=== PATIENT | female | born 1935 ===

== ENCOUNTER 2018-06-20 22:57 | Inpatient (IN) ==
[2018-06-20] MEDS ORDERED: DUONEB (A & A) INH ONE (23:34)
[2018-06-20] MEDS ORDERED: SOLU-MEDROL IV ONE (23:36)
[2018-06-20 23:50] LABS: BE 2.4 mmoll (-3.0-3.0); BLOOD TYPE ARTERIAL; HCO3-(ACT) 26.4 mmoll (20.0-26.0); METHB 1.3 % (0.0-1.5); O2(CT) 19.4 mL/dL (15.0-23.0); PO2(98.6) 62 mmHg (60-100); SAMPLE BLOOD; SAO2 89.6 % (95.0-100.0); THB 16.1 g/dL (11.5-17.4)
[2018-06-20 23:59] LABS: BASO# 0.05 X1000 (0.0-0.2); BASO% 0.3 % (0.0-0.8); EOS# 0.08 X1000 (0.0-0.7); EOS% 0.5 % (0.0-10.0); HEMATOCRIT 47.6 % (37.0-47.0); HEMOGLOBIN 15.5 g/dL (12.0-16.0); IMM GRAN# 0.04 X1000 (0.0-0.04); IMM GRAN% 0.2 % (0.0-0.5); LYMPH# 1.52 X1000 (1.2-3.4); LYMPH% 9.1 % (20.5-51.1); MCH 29.3 PG (27-31); MCHC 32.6 g/dL (33-37); MONO# 1.99 X1000 (0.11-0.59); MPV 9.4 FL (7.4-10.4); NEUT# 12.97 X1000 (1.4-6.5); NEUT% 77.9 % (42.2-75.2); PLT 202 X1000 (130-400); RBC 5.29 XMIL (4.2-5.4); RDW 15.5 % (11.5-14.5); WBC 16.65 X1000 (4.8-10.8)
[2018-06-21 00:07] LABS: PCO2(98.6) 96 mmHg (35-45); pH(98.6) 7.17 (7.35-7.45)
[2018-06-21 00:08] LABS: ALLEN TEST YES; MODALITY CANNULA
[2018-06-21 00:09] LABS: INFLUENZA A POSITIVE (NEGATIVE); INFLUENZA B NEGATIVE (NEGATIVE)
[2018-06-21 00:19] LABS: AGAP 14; ALKALINE PHOSPHATASE 83 U/L (32-104); BUN 14 mg/dL (8-22); CALCIUM 8.4 mg/dL (8.8-10.2); CHLORIDE 90 mmol/L (98-107); COSMO 264; CREATININE 0.6 mg/dL (0.5-0.9); ESTIMATED GFR > 60; GLUCOSE 189 mg/dL (70-104); GOT 31 U/L (10-30); GPT 25 U/L (10-36); POTASSIUM 4.1 mmol/L (3.5-5.1); SODIUM 129 mmol/L (136-145); TCO2 25 mmol/L (25-35); TOTAL PROTEIN 6.1 g/dL (6.3-8.3)
[2018-06-21] MEDS ORDERED: TAMIFLU PO ONE (00:29)
[2018-06-21 00:34] LABS: BLOOD TYPE ARTERIAL; SAMPLE BLOOD
[2018-06-21 00:45] LABS: BILIRUBIN URINE NEGATIVE (NEGATIVE); BLOOD URINE 3+ (NEGATIVE); CLARITY CLEAR (CLEAR); COLOR YELLOW; GLUCOSE URINE NEGATIVE (NEGATIVE); KETONE URINE NEGATIVE (NEGATIVE); LEUKOCYTES URINE TRACE (NEGATIVE); NITRITE URINE NEGATIVE (NEGATIVE); PH URINE 6.5; URINE BACTERIA 2+ /HFP; URINE EPITHELIAL CELLS <10 /HPF (<10); URINE SOURCE CATH; URINE WBC <10 /HPF (<10); UROBILINOGEN URINE 4 mg/dL
[2018-06-21 01:07] LABS: pH(98.6) 7.26 (7.35-7.45)
[2018-06-21 01:08] LABS: BE 1.7 mmoll (-3.0-3.0); HCO3-(ACT) 26.2 mmoll (20.0-26.0); METHB 1.5 % (0.0-1.5); O2HB 95.1 % (95.0-99.0); PCO2(98.6) 69 mmHg (35-45); PO2(98.6) 117 mmHg (60-100); SAO2 99.2 % (95.0-100.0); THB 15.1 g/dL (11.5-17.4)
[2018-06-21 01:09] LABS: ALLEN TEST YES; MODALITY BI PAP; O2(CT) 33.1 mL/dL (15.0-23.0)
[2018-06-21] MEDS ORDERED: LEVAQUIN 750 MG/D5W 750 MG/150 ML IVPB IV ONE (01:29)
[2018-06-21] MEDS ORDERED: LASIX IV ONE (01:34)
--- NOTE | 2018-06-21 05:13 | Diag Imaging Result Doc PS360 ---
EXAM: CHEST-1 VIEW HISTORY: low o2 sat TECHNIQUE: Portable chest single view COMPARISON: 03/20/2014 FINDINGS: The lungs are well expanded. The heart is mildly enlarged. There is a left-sided pacemaker. The pulmonary vessels aren't distended. Questionable trace pleural fluid. No consolidation. IMPRESSION: Cardiomegaly with pulmonary edema. Electronically signed by Hua Mckeon 06/21/2018 5:10 AM
--- NOTE | 2018-06-21 05:22 | EKG Report ---
Test Performed on : 06/20/2018 11:53:08 PM Test Reason : SOB Blood Pressure : / mmHG Vent. Rate : 062 BPM Atrial Rate : 113 BPM P-R Int : 162 ms QRS Dur : 200 ms QT Int : 510 ms P-R-T Axes : 000 -81 098 degrees QTc Int : 517 ms AV dual-paced rhythm Abnormal ECG When compared with ECG of 20-MAR-2014 05:44, Electronic ventricular pacemaker has replaced Sinus rhythm. Unconfirmed Result
[2018-06-21] MEDS ORDERED: TAMIFLU PO SCH (09:00)
[2018-06-21] MEDS ORDERED: METFORMIN HCL 500 MG PO PRN (12:58)
[2018-06-21] MEDS ORDERED: ZOFRAN IV PRN (12:58)
[2018-06-21] MEDS ORDERED: TYLENOL PO PRN (12:58)
[2018-06-21] MEDS ORDERED: DUONEB (A & A) INH PRN (12:59)
[2018-06-21] MEDS ORDERED: GLUCOPHAGE XR PO PRN (13:51)
[2018-06-21] MEDS: IMDUR PO SCH (14:51)
[2018-06-21] MEDS: TAMIFLU PO SCH ×2 (14:52→20:23)
[2018-06-21] MEDS: NORVASC PO SCH (14:52)
[2018-06-21] MEDS: PRINIVIL PO SCH (14:52)
[2018-06-21] MEDS: ASPIRIN EC PO SCH (14:52)
[2018-06-21] MEDS: HYDROCHLOROTHIAZIDE PO SCH (14:52)
[2018-06-21] MEDS: NS 1,000 ML IV SCH (14:53)
[2018-06-21] MEDS: ROCEPHIN 1 GM in NS 50 ML IV SCH (14:53)
[2018-06-21] MEDS: DUONEB (A & A) INH SCH ×3 (15:30→19:52)
[2018-06-21] MEDS: XARELTO PO SCH (17:01)
[2018-06-21] MEDS: SOLU-MEDROL IV SCH (17:01)
[2018-06-21] MEDS: HUMALOG (PARKWAY) SUBQ SCH ×2 (17:02→22:04)
--- NOTE | 2018-06-21 18:18 | HISTORY AND PHYSICAL ---
CHIEF COMPLAINT: Shortness of breath. HISTORY OF PRESENT ILLNESS: This is an 82-year-old woman with a history of diabetes mellitus, hypertension, bradyarrhythmias status post permanent pacemaker, as well as a deep vein thrombosis. She presents to the emergency room with increasing shortness of breath x1 week as well as generalized body aches. She reports being severely short of breath and falling just prior to calling EMS. She denied any injury. On EMS arrival, the patient had O2 saturation of 74% on 2 L nasal cannula. En route EMS administered for breathing treatments and she had an O2 saturation of 82% on 2 L on arrival to the ER. A chest x-ray revealed cardiomegaly with pulmonary edema. She was found to be influenza A positive as well as hyponatremic. She was given Tamiflu, Lasix, steroids, antibiotics, and admitted for further evaluation and treatment. PAST MEDICAL HISTORY: 1. Diabetes mellitus. 2. Hyperlipidemia 3. Hypertension. 4. Degenerative joint disease. 5. Insomnia. 6. Bradyarrhythmia status post permanent pacemaker. 7. History of DVT on Xarelto. 8. Home O2 use. 9. History of polio. PAST SURGICAL HISTORY: Pacemaker placement. SOCIAL HISTORY: She smokes about a half a pack a day. She denies alcohol or illicit drug use. ALLERGIES: Penicillin which causes hives. HOME MEDICATIONS: A list will be obtained by the nursing staff and once verified, will review and restart as appropriate. REVIEW OF SYSTEMS: Discussed with the patient with pertinent positives stated in the HPI. She denied any syncope or dizziness, any chest pain or palpitations, a productive cough, any recent weight loss or weight gain, nausea, vomiting, diarrhea, constipation, black or bloody vomitus or stools, any hematuria, dysuria, frequency, urgency. PHYSICAL EXAMINATION: GENERAL: This is an 82-year-old female who is sitting up in the stretcher in the ER on BiPAP. VITAL SIGNS: Blood pressure is 119/64 with respirations 20 to 22. Temperature is 97.8 degrees with saturations of 97% on BiPAP. HEENT: Eyes-pupils are equal, round, react to light. EOMs are intact. Sclerae are anicteric. Mucous membranes are moist with neck supple. CARDIOVASCULAR: Regular rate and rhythm. S1 and S2 appreciated. PULMONARY: Breath sounds with wheezes scattered throughout. Chest rises and falls symmetrically with respiration. GASTROINTESTINAL: Abdomen is soft, nontender, nondistended with bowel sounds in all 4 quadrants. GENITOURINARY: She has Blackmon catheter with clear yellow urine draining. NEUROLOGIC: She is alert and oriented. SKIN: Warm and dry. LABORATORY DATA: WBC is 16.6, hemoglobin 15.5, hematocrit 47.6, and platelets of 202,000. Sodium is 129, potassium 4.1, BUN 14, creatinine 0.6 with a glucose of 189. Her proBNP is 1148. Chest x- ray revealed cardiomegaly with pulmonary edema. ASSESSMENT AND PLAN: 1. Acute hypoxic respiratory failure. continue with supplemental oxygen. continue BiPAP. DuoNeb q.2 hours p.r.n. We will give steroids to taper. Duo nebs q.4 h with q.2 h prn Monitor a strict I O with daily weights. 2. Diabetes mellitus. She will be placed on pattern blood glucose with sliding scale insulin. 3. Hyponatremia. We will monitor her labs and review medications. 4. Influenza A positive. Continue Tamiflu 5. History of hypertension. 6. History of bradycardia status post permanent pacemaker placement. 7. History of deep venous thrombosis on Xarelto. 8. History of polio. The patient will be admitted to the medical-surgical floor and placed on telemetry. Antibiotic coverage of Rocephin. Repeat a CBC, CMP and magnesium in the morning. For DVT prophylaxis., we will continue her Xarelto GI prophylaxis we will use Prilosec. Repeat a two-view chest in the morning. Further treatments pending hospital course. Dictated by YULIA Pelayo for Luis Fernando Xie MD This chart was documented by, YULIA Pelayo and accurately reflects the services performed, treatment plan and medical decisions as attested by the providers signature Luis Fernando Xie MD. cc: YULIA Pelayo MD [facility]
[2018-06-21] MEDS: DESYREL PO SCH (20:22)
[2018-06-21] MEDS: COREG PO SCH (20:23)
[2018-06-21] MEDS ORDERED: CALMOSEPTINE OINTMENT TOP PRN (20:54)
[2018-06-21] MEDS ORDERED: DESITIN OINTMENT TOP PRN (20:54)
[2018-06-22] MEDS: DUONEB (A & A) INH SCH ×7 (00:05→22:45)
[2018-06-22] MEDS: SOLU-MEDROL IV SCH ×4 (00:30→23:15)
--- NOTE | 2018-06-22 01:54 | HISTORY AND PHYSICAL ---
ADDENDUM: Patient seen and examined by myself. Full note dictated discussed with nurse practitioner. Patient notes that she has been sick for a couple of days. She presented with increased shortness of breath. She is on oxygen at home, was placed on BiPAP in the ER. Subsequently diagnosed with flu A positive. We will admit to the hospital, place on Tamiflu, treat symptomatically and follow. cc: Luis Fernando Xie MD
[2018-06-22] MEDS: NS 1,000 ML IV SCH (05:41)
[2018-06-22] MEDS: PRILOSEC PO SCH (05:42)
[2018-06-22] MEDS: HUMALOG (PARKWAY) SUBQ SCH ×4 (06:27→21:32)
[2018-06-22] MEDS ORDERED: NS 1,000 ML IV SCH (06:30)
[2018-06-22 06:38] LABS: HEMATOCRIT 44.5 % (37.0-47.0); HEMOGLOBIN 14.9 g/dL (12.0-16.0); MCH 29.5 PG (27-31); MCHC 33.5 g/dL (33-37); MCV 88.1 FL (81-99); MPV 9.5 FL (7.4-10.4); RBC 5.05 XMIL (4.2-5.4); WBC 6.79 X1000 (4.8-10.8)
--- NOTE | 2018-06-22 06:48 | Diag Imaging Result Doc PS360 ---
EXAM: CHEST-PORTABLE - 06/22/2018 HISTORY: hypoxia TECHNIQUE: Portable chest COMPARISON: 06/20/2018 FINDINGS: There is cardiomegaly. There is transvenous cardiac pacemaker again seen. There is been some decrease in vascular/interstitial marking prominence. There is no dense consolidation, pleural effusion, or pneumothorax identified. There is a left midlung calcified granuloma from old granulomatous disease. IMPRESSION: Cardiomegaly. Decrease in vascular congestion/interstitial edema compared to prior. Electronically signed by Dragan Meza 06/22/2018 6:46 AM
[2018-06-22 07:08] LABS: AGAP 9; ALBUMIN 2.6 g/dL (3.5-5.0); ALKALINE PHOSPHATASE 67 U/L (32-104); BUN 15 mg/dL (8-22); CALCIUM 8.7 mg/dL (8.8-10.2); CHLORIDE 96 mmol/L (98-107); COSMO 269; CREATININE 0.5 mg/dL (0.5-0.9); ESTIMATED GFR > 60; GLUCOSE 138 mg/dL (70-104); GOT 16 U/L (10-30); GPT 17 U/L (10-36); MAGNESIUM 2.1 mg/dL (1.5-2.7); POTASSIUM 3.9 mmol/L (3.5-5.1); SODIUM 133 mmol/L (136-145); TCO2 28 mmol/L (25-35); TOTAL PROTEIN 5.8 g/dL (6.3-8.3)
[2018-06-22] MEDS: ASPIRIN EC PO SCH (08:27)
[2018-06-22] MEDS: COREG PO SCH ×2 (08:27→20:25)
[2018-06-22] MEDS: PRINIVIL PO SCH (08:28)
[2018-06-22] MEDS: IMDUR PO SCH (08:28)
[2018-06-22] MEDS: HYDROCHLOROTHIAZIDE PO SCH (08:28)
[2018-06-22] MEDS: NORVASC PO SCH (08:28)
[2018-06-22] MEDS: TAMIFLU PO SCH ×2 (08:28→20:25)
[2018-06-22] MEDS ORDERED: CRESTOR PO SCH (09:00)
[2018-06-22] MEDS: ROCEPHIN 1 GM in NS 50 ML IV SCH (13:38)
[2018-06-22] MEDS: XARELTO PO SCH (16:43)
[2018-06-22] MEDS: DESYREL PO SCH (20:25)
--- NOTE | 2018-06-23 00:52 | PROGRESS NOTE ---
DATE: 06/22/2018 SUBJECTIVE: Patient notes that she feels better. Denies any fevers or chills currently. PHYSICAL EXAMINATION: Vital Signs: Temperature 98 degrees, pulse 64, respiratory 20, BP 111/88. General: Patient is awake, alert. She is feeling better. HEENT: Normocephalic. Neck: Supple. Cardiovascular: Regular rate. Chest: Clear, nonlabored. Abdomen: Soft. Extremities: Moves all extremities. ASSESSMENT: 1. Influenza A positive. 2. Adult failure to thrive. The patient is unable to get out of bed without assistance. 3. Hypoxemia. PLAN: We will continue patient in the hospital. Continue physical therapy. She will need rehab on discharge. cc: Luis Fernando Xie MD
[2018-06-23] MEDS: DUONEB (A & A) INH SCH ×4 (03:07→15:16)
[2018-06-23] MEDS: PRILOSEC PO SCH ×2 (06:13→09:04)
[2018-06-23] MEDS: HUMALOG (PARKWAY) SUBQ SCH ×2 (06:13→11:19)
[2018-06-23] MEDS: TAMIFLU PO SCH (08:56)
[2018-06-23] MEDS: COREG PO SCH (08:57)
[2018-06-23] MEDS: ASPIRIN EC PO SCH (08:57)
[2018-06-23] MEDS: IMDUR PO SCH (08:57)
[2018-06-23] MEDS: NORVASC PO SCH (09:00)
[2018-06-23] MEDS ORDERED: SOLU-MEDROL IV SCH (09:00)
[2018-06-23] MEDS: PRINIVIL PO SCH (09:00)
[2018-06-23] MEDS: HYDROCHLOROTHIAZIDE PO SCH (09:00)
[2018-06-23] MEDS ORDERED: NICODERM PATCH TD SCH (12:30)
[2018-06-23 13:24] VITALS: BP 117/58
[2018-06-23] MEDS: ROCEPHIN 1 GM in NS 50 ML IV SCH (14:24)
[2018-06-23] MEDS ORDERED: CRESTOR PO SCH (21:00)
--- NOTE | 2018-06-25 01:32 | DISCHARGE SUMMARY ---
ADMISSION DATE: 06/21/2018 DISCHARGE DATE: 06/23/2018 DISCHARGE DIAGNOSIS: 1. Influenza A positive. 2. Acute hypoxic respiratory failure, resolved. 3. Diabetes. 4. Hyponatremia, resolved. 5. Hyponatremia, resolved. 6. Hypertension. 7. History of bradycardia. CONSULTATIONS: None. PROCEDURES: None. BRIEF HOSPITAL COURSE: Patient is an 82-year-old female who presented to the hospital. Subsequently diagnosed with influenza A positive. Thankfully, she had an uneventful hospital course. She was placed on Tamiflu and oxygen. She continued to improve. On discharge, she is feeling better. She is able to ambulate with a walker which is her usual at home. DISPOSITION: Patient will continue Tamiflu for the next 3 days at home. We will continue physical therapy at home. We will continue current medications. cc: Luis Fernando Xie MD
== END 2018-06-23 16:05 | disposition home health service (06) | DRG 193 ==
LOC: P.ED 22:57 → P.MEDSURG 06-21 07:54 → SUATTDRO 06-21 07:54
PROVIDERS: ADMIT Family Medicine; ATTEND Family Medicine
CPT/HCPCS: 51702; 71010; 71045; 80053; 81001; 82550; 82805; 82948; 83605; 83735; 83880; 84484; 85025; 85027; 87040; 87088; 87275; 87276; 87804; 93005; 94640; 94761; 96374; 96375; 97163; 99285; A9270; J0696; J1815; J1940; J1956; J2920; J2930; J7030; XXXXX

== ENCOUNTER 2019-08-21 11:43 | Inpatient (IN) ==
[2019-08-21] MEDS ORDERED: NS 500 ML IV ONE (13:25)
[2019-08-21] MEDS ORDERED: TYLENOL PO PRN (13:48)
[2019-08-21] MEDS ORDERED: ZOFRAN IV PRN (13:48)
[2019-08-21] MEDS ORDERED: PROTONIX 80 MG in NS 80 ML IV SCH (13:53)
[2019-08-21] MEDS ORDERED: CARAFATE LIQUID PO SCH (14:00)
[2019-08-21 14:32] LABS: BASO% 3.1 % (0.0-0.8); EOS# 0.26 X1000 (0.0-0.7); LYMPH# 0.81 X1000 (1.2-3.4); LYMPH% 12.4 % (20.5-51.1); MCH 18.1 PG (27-31); MCHC 25.3 g/dL (33-37); MCV 71.4 FL (81-99); MONO# 0.77 X1000 (0.11-0.59); MONO% 11.8 % (1.7-9.3); MPV 9.3 FL (7.4-10.4); NEUT# 4.48 X1000 (1.4-6.5); NEUT% 68.7 % (42.2-75.2); PLT 337 X1000 (130-400); RBC 2.38 XMIL (4.2-5.4); RDW 20.4 % (11.5-14.5); WBC 6.52 X1000 (4.8-10.8)
[2019-08-21 14:36] LABS: HEMOGLOBIN 4.3 g/dL (12.0-16.0)
--- NOTE | 2019-08-21 14:43 | EKG Report ---
Test Performed on : 08/21/2019 2:33:43 PM Test Reason : rythm eval; hx afib Blood Pressure : / mmHG Vent. Rate : 060 BPM Atrial Rate : 059 BPM P-R Int : 186 ms QRS Dur : 188 ms QT Int : 494 ms P-R-T Axes : 000 -73 098 degrees QTc Int : 494 ms AV dual-paced rhythm Abnormal ECG When compared with ECG of 20-JUN-2018 23:53, Vent. rate has decreased BY 2 BPM Confirmed by Jeffry GRIGSBY, Bobby Graham ([id number]) on 08/22/2019 9:57:49 AM
--- NOTE | 2019-08-21 14:48 | Diag Imaging Result Doc PS360 ---
EXAM: CHEST-2 VIEWS INDICATION: sob TECHNIQUE: 2 views COMPARISON: 06/22/2018 FINDINGS: There is a platelike opacity at the right lung base suggesting atelectasis +/- infiltrate. There is milder atelectasis versus infiltrate at the left lung base. There are small effusions bilaterally. There is stable cardiomegaly. IMPRESSION: Small bilateral effusions with adjacent atelectasis and/or infiltrate at the lung bases, more prominent on the right. Electronically signed by Woodrow Vanegas 08/21/2019 2:46 PM
--- NOTE | 2019-08-21 15:02 | HISTORY AND PHYSICAL ---
PRIMARY CARE PROVIDER: Dr. Griggs CHIEF COMPLAINT: Black tarry stools and low hemoglobin. HISTORY OF PRESENT ILLNESS: Ms. Shanita Oro is an 84-year-old female who came in as a direct admit. She has a history of atrial fibrillation and DVT, currently on Xarelto. Apparently, she has been having black stools over the last 2 weeks, increased weakness, but denies shortness of breath, fever, chills. Denies chest pain. Essentially has no other complaints at this time. She is normally on 2 L of oxygen at home. However, she has been increased up to 4 L while she is here. She has a permanent pacemaker. Dr. Martinez was notified by Dr. Griggs. She was found to have a hemoglobin of 4.1, so bypassed the emergency department and went to [facility] for further treatment and evaluation. Dr. Martinez currently at the bedside with plans to do an EGD for in the morning and give blood and start her on Protonix. The patient does admit to taking Advil twice a day but is unsure why she takes it. PAST MEDICAL HISTORY: 1. Diabetes mellitus type 2, on metformin. 2. Hyperlipidemia. 3. Hypertension. 4. Degenerative joint disease. 5. Insomnia. 6. History of atrial fibrillation with a pacemaker and bradyarrhythmia. 7. History of DVT on Xarelto. 8. Home oxygen 2 L. 9. History of polio in the left leg. SURGICAL HISTORY: 1. Permanent pacemaker. 2. Total right knee replacement. 3. Mole excision. SOCIAL HISTORY: She has been a smoker about half pack per day, but she quit 2 to 3 months ago. Currently has nicotine patch on. Denies alcohol or illicit drug use. FAMILY HISTORY: Denies. ALLERGIES: Penicillin causes hives. HOME MEDICATIONS: Reviewed list sent by Dr. Griggs's office. HOME MEDICATIONS: 1. Mobic 15 mg daily. 2. Trazodone 50 mg p.o. nightly. 3. Simvastatin 40 mg p.o. daily. 4. Norvasc 10 mg p.o. daily. 5. Coreg 12.5 mg p.o. twice daily. 6. Xarelto 20 mg p.o. daily. 7. Lisinopril/hydrochlorothiazide 12.5 mg p.o. daily. 8. Potassium chloride 10 mEq p.o. daily. 9. Lasix 40 mg p.o. daily. 10. Isosorbide extended release 30 mg p.o. daily. 11. Metformin 500 mg p.o. twice daily. REVIEW OF SYSTEMS: Fourteen point review of systems are complete and all were negative except for those mentioned in above HPI. PHYSICAL EXAMINATION: VITAL SIGNS: Temperature 98.5 degrees, heart rate 60, respiratory rate 18, blood pressure 84/50, O2 saturation 97% on 4 L nasal cannula. Height 5 feet 5 inches tall, 177 pounds. BMI is 30.4. GENERAL: Ms. Shanita Oro is an 84-year-old female. She is in no acute distress. She is able to answer questions appropriately. HEENT: She is hard of hearing. Extraocular movements are intact. She is atraumatic. Mucous membranes are dry. NECK: Trachea midline. CARDIOVASCULAR: S1, S2. Regular rate and rhythm. No rubs, gallops, murmurs. She has got 2+ lower extremity pitting edema, +2 dorsalis and radial pulses. Mild JVD. Negative for carotid bruits. PULMONARY: Clear to auscultate, bilateral breath sounds. No accessory muscle use or work of breathing noted. She tolerating 4 L nasal cannula. GI: Soft, nontender, nondistended. Positive bowel sounds x4. EXTREMITIES: Decreased range of motion. Moves all extremities equally. SKIN: Warm, dry, intact but pale. NEUROLOGIC: Oriented x3. Follows commands. Sensory is intact. LABORATORY DATA: We have no labs available yet but what was sent from Dr. Baptiste's office that was performed today showed sodium 134, potassium 4.3, BUN 85, creatinine 1.3, glucose 85, calcium 8.5, albumin 2.8. White blood cells 6000, hemoglobin 4.1, hematocrit 16.5, platelet count 335,000. ProBNP 2542. IMAGING: None yet available. ASSESSMENT AND PLAN: 1. Acute likely Upper gastrointestinal bleeding likely secondary to Xarelto, Mobic, Advil use. She is having routine anemia labs obtained and there is an order for 3 units packed red blood cells. Dr. Martinez has been notified and plans for EGD in the morning. No CT scan for now per Dr. Martinez. 2. Complains of increased swelling in her lower extremities with history of DVT on Xarelto, but currently that will be held. We will go ahead and get ultrasound of lower extremities. 3. Acute blood loss anemia secondary to gastrointestinal bleeding. Again, she will get packed red blood cells for a total of 3 for now. Last hemoglobin 4.1 according to what was sent from Dr. Griggs's office. She will be on Protonix twice a day. 4. Diabetes mellitus type 2. Will do pattern blood glucoses and sliding scale insulin. 5. Mild hypoxemia compared to her usual. She is normally on 2 L nasal cannula. She has been increased to 4 L. A set of ABGs have been ordered. Chest x-ray to evaluate. The white count is normal at 6000 on the labs that she had drawn prior to coming here. 6. Hypertension. Waiting for home medications to be reconciled in the computer to resume medications. 7. History of atrial fibrillation and DVT. Permanent pacemaker, bradyarrhythmias. Xarelto currently on hold. She is supposed to be on Coreg twice a day. Once that is reconciled, we will get that resumed. We will follow up on the echocardiogram. Possible history of congestive heart failure. 8. History of tobacco abuse, remote. She quit around 2 to 3 months ago according to her. Currently has nicotine patch on. 9. Deep venous thrombosis prophylaxis. SCDs. Dictated by YULIA Florian for Darshan Gee MD cc: YULIA Florian MD I agree with most components of history, physical, assessment and plan. A separate addendum has been dictated. MTDD
[2019-08-21] MEDS: PROTONIX IV SCH (15:42)
[2019-08-21 15:46] LABS: ALLEN TEST YES; BE 11.7 mmoll (-3.0-3.0); BLOOD TYPE ARTERIAL; HCO3-(ACT) 34.1 mmoll (20.0-26.0); O2(CT) 6.4 mL/dL (15.0-23.0); O2HB 94.4 % (95.0-99.0); PO2(98.6) 65 mmHg (60-100); SAMPLE BLOOD; SAO2 97.6 % (95.0-100.0); THB 4.7 g/dL (11.5-17.4); pH(98.6) 7.42 (7.35-7.45)
[2019-08-21 15:49] LABS: MODALITY CANNULA; PCO2(98.6) 57 mmHg (35-45)
[2019-08-21] MEDS ORDERED: HUMULIN R SUBQ SCH (16:00)
[2019-08-21 16:23] LABS: ANISOCYTOSIS 2+; LYMPHS 13 % (21-51); MONO 9 % (1-9); SEGS 78 % (42-75)
[2019-08-21 16:24] LABS: HYPOCHROM 2+; MICROCYTOSIS 2+; POIKILOCYTOSIS 2+
--- NOTE | 2019-08-21 16:24 | Extremity Venous Study ---
PROCEDURE NAME: Venous U/S Bilateral Legs - 08/21/2019 REFERRING PRACTITIONER: YULIA Florian READING PHYSICIAN: Giovani Ritchie MD CONSULTANT EDUCATION: [place] INDICATION: Leg swelling. FINDINGS: The deep and superficial veins of both lower extremities were imaged throughout their course. They are compressible, patent and without thrombus. INTERPRETATION: No DVT or SVT of either lower extremity. cc: MD Susna Morse CRNP
--- NOTE | 2019-08-21 17:15 | HISTORY AND PHYSICAL ---
ADDENDUM: I agree with most components of the history, physical, assessment, and plan. In brief, Ms. Oro is an 84-year-old, lady with a past medical history of bradycardia, status post pacemaker, chronic hypoxic respiratory failure, on home oxygen, paroxysmal atrial fibrillation, on Xarelto, essential hypertension, who was seeing her outpatient provider, who got lab tests where she was found to have acute anemia with a hemoglobin of 4. She was also complaining of melena, so she was directly admitted for further management. At the time of my evaluation, Ms. Oro denies chest pain or shortness of breath. She has been having a cough with greenish expectoration. She denies any nausea, vomiting, or abdominal pain. REVIEW OF SYSTEMS: Positive for melena. LABS: Currently, hemoglobin 4.3, platelets 337,000. Her coagulation has not been performed. However, her liver function tests performed outside has pretty unremarkable liver function tests except extremely low AST and ALT. ASSESSMENT: 1. Acute blood loss anemia. 2. History of deep venous thrombosis and paroxysmal atrial fibrillation, on Xarelto, likely contributing to her anemia and melena. 3. Suspected bilateral lower lobe pneumonia without sepsis. 4. History of tng-[id number] diabetes mellitus. 5. History of bradycardia, status post pacemaker. 6. Acute on chronic hypoxic respiratory failure due to severe anemia and pneumonia. 7. History of remote tobacco abuse. PLAN: I will give the patient 2 units of blood transfusion. We will follow up with CBC. I will keep her on intravenous Protonix. The source of her acute gastrointestinal bleed is unclear at the moment. She has been taking NSAID at home which may point towards acute upper gastrointestinal bleed. She was also taking on Xarelto, which could have potentiated it. Appreciate GI recommendations regarding need for esophagogastroduodenoscopy. I will closely monitor her in the PVC unit. I will also get a sputum analysis and start her on empiric antibiotics. Plan of care was discussed with her. Her questions have been answered. ADDENDUM: Patient had started developing worsening of Hypoxia. This could be due to pneumonia, Acute pulmonary edema due to volume overload due to blood transfusion. She denies recent travel outside of [place] and has not had any sick contacts. However, considering her cough, shortness of breath and age, we would rule out COVID 19. cc: Darshan Gee MD [facility]
[2019-08-21] MEDS ORDERED: LASIX IV ONE (17:40)
[2019-08-21 17:57] LABS: INR 1.46
[2019-08-21] MEDS: ICAR-C PLUS PO SCH (17:59)
[2019-08-21] MEDS: HUMALOG SUBQ SCH ×2 (17:59→22:18)
[2019-08-21] MEDS ORDERED: LEVAQUIN PO ONE (18:10)
[2019-08-21 21:43] LABS: BASO# 0.09 X1000 (0.0-0.2); BASO% 1.4 % (0.0-0.8); EOS# 0.26 X1000 (0.0-0.7); EOS% 3.9 % (0.0-10.0); HEMATOCRIT 19.5 % (37.0-47.0); LYMPH# 0.98 X1000 (1.2-3.4); LYMPH% 14.8 % (20.5-51.1); MCH 19.3 PG (27-31); MCHC 27.2 g/dL (33-37); MCV 71.2 FL (81-99); MONO% 13.6 % (1.7-9.3); MPV 9.4 FL (7.4-10.4); NEUT# 4.39 X1000 (1.4-6.5); NEUT% 66.3 % (42.2-75.2); PLT 313 X1000 (130-400); RBC 2.74 XMIL (4.2-5.4); RDW 19.3 % (11.5-14.5); WBC 6.62 X1000 (4.8-10.8)
[2019-08-21 21:46] LABS: HEMOGLOBIN 5.3 g/dL (12.0-16.0)
[2019-08-21 22:00] LABS: AGAP 11; BUN 45 mg/dL (8-22); CALCIUM 8.3 mg/dL (8.8-10.2); CHLORIDE 94 mmol/L (98-107); COSMO 281; CREATININE 1.2 mg/dL (0.5-0.9); GLUCOSE 90 mg/dL (70-104); POTASSIUM 4.4 mmol/L (3.5-5.1); SODIUM 135 mmol/L (136-145); TCO2 30 mmol/L (25-35)
[2019-08-21] MEDS: ZOCOR PO SCH (22:17)
[2019-08-21 22:23] LABS: ALB/GLOB RATIO 1.3; ALBUMIN 2.5 g/dL (3.5-5.0); DIRECT BILIRUBIN 0.1 mg/dL (0.00-0.20); TOTAL BILIRUBIN 0.3 mg/dL (0.20-1.00); TOTAL PROTEIN 4.5 g/dL (6.3-8.3)
[2019-08-21 22:35] LABS: IRON SATURATION 33 %; TIBC 352 ug/dL; TOTAL IRON 116 ug/dL (49-151); UNBOUND IRON 236 ug/dL (112-346)
[2019-08-21 23:01] LABS: FERRITIN 9 ng/mL (13-150)
--- NOTE | 2019-08-22 02:09 | GASTROENTEROLOGY CONSULTATION ---
DATE: 08/21/2019 REASON FOR CONSULTATION: Acute GI bleed. HISTORY OF PRESENT ILLNESS: Mrs. Shanita Oro is an 84-year-old woman with past medical history of COPD, noninsulin dependent diabetes, hypertension, hyperlipidemia, degenerative joint disease, atrial fibrillation, status post pacemaker, history of DVT on Xarelto, on 2 L of home oxygen, who presents with 2 weeks of melenic stools. She was found to have a hemoglobin as an outpatient at 4.1, which prompted her to be directed to the hospital. She denies any chest pain, lightheadedness, dizziness. She has shortness of breath at baseline. No bright red blood per rectum, abdominal pain, history of similar symptoms. She has never had EGD in the past. She does report having a remote colonoscopy that was unrevealing. She does take Advil twice a day for unclear reasons. She is also on Mobic REVIEW OF SYSTEMS: As per HPI, otherwise 12 point review of systems negative. PAST MEDICAL HISTORY: As per HPI. Also, insomnia, history of polio of the left leg. SURGICAL HISTORY: Pacemaker, total right knee replacement, mole excision. SOCIAL HISTORY: Quit about 2 to 3 months ago, is on a nicotine patch. Denies any alcohol or drug use. FAMILY HISTORY: No family history of GI malignancies. ALLERGIES: Penicillin. HOME MEDICATIONS: Include Mobic, trazodone, simvastatin, losartan, Coreg, Xarelto, lisinopril- hydrochlorothiazide combination, potassium, Lasix, isosorbide extended-release, metformin. PHYSICAL EXAMINATION: Vital Signs: Temperature 98.4, heart rate of 60, blood pressure 104/47, respiratory rate 19, O2 saturation 93% on 5 L nasal cannula. General: The patient is awake, alert, in no acute distress. She is pale appearing. HEENT: Sclerae anicteric. Moist mucous membranes. Extraocular motor intact. Neck: Supple. No JVD or lymphadenopathy. Cardiac: Regular rate and rhythm. No murmurs, rubs, or gallops. Lungs: Clear to auscultation bilaterally. She does have some increased work of breathing. Abdomen: Soft, nontender, nondistended. Normoactive bowel sounds. No rebound or guarding. Extremities: One to 2+ pitting edema bilaterally. LABS: CBC: White count of 6.6, hemoglobin of 5.3, platelets of 313,000. INR 1.46. ABG with pH is 7.4, pCO2 of 57. Sodium 135, potassium 4.4, chloride of 94, bicarb of 30, BUN of 45, creatinine 1.2. Iron studies show ferritin of 9, iron of 116. LFTs unremarkable. LDH is 217. Troponin high since continue 25. ProBNP of 2350. Albumin of 2.5. Vitamin B12 164. TSH is 246, MCV of 71.2. IMAGING: Chest x-ray shows small bilateral effusions with adjacent atelectasis and/or infiltrates at the lung bases, more prominent on the right. Doppler lower extremity ultrasound bilaterally: No DVT or SVT of either extremity. PROBLEM LIST: - Melena - Iron deficiency anemia - COPD - AFIB - History of DVT - Vitamin B12 deficiency - NIDDM2 ASSESSMENT AND PLAN: Ms. Shanita Oro is an 84-year-old woman who presents with probable upper GI bleed concerning for PUD. She does take Xarelto, Mobic and Advil on a regular basis. Her hemoglobin as an outpatient was 4.1, currently is 5.3. She is receiving 2 units of packed red blood cells. We will check a hemoglobin post transfusion and transfuse as needed to maintain a hemoglobin of 7 and 8. Maintain 2 large-bore peripheral IVs. She is on PPI IV b.i.d. We will keep her n.p.o. for diagnostic EGD in the morning. She is on supplemental oxygen. We are holding her blood thinners and NSAIDs. Trend her hemoglobin and hematocrit daily. She does have some vitamin B12 deficiency, iron deficiency suggestive of probable acute on chronic blood loss. We will follow with you. Please call with any questions or concerns. ÓSCAR
[2019-08-22] MEDS: PROTONIX IV SCH (02:51)
--- NOTE | 2019-08-22 04:06 | PROGRESS NOTE ---
DATE: 08/21/2019 I came by to evaluate the patient at around 2:45 p.m. However patient was not in the room. I asked the nurse and learned the patient had gone down likely for echocardiogram. I immediately asked the nurse to take the patient back and send her over to the PVC unit since echocardiogram was not urgent and patient needed blood and some IV fluids. So far patient has not returned and I reminded nurse about it. I was told that the nurse was not able to get in touch with the patient and find out her location so far. cc: Darshan Gee MD
[2019-08-22 06:13] LABS: BASO# 0.06 X1000 (0.0-0.2); BASO% 0.9 % (0.0-0.8); EOS# 0.27 X1000 (0.0-0.7); EOS% 3.9 % (0.0-10.0); HEMATOCRIT 23.1 % (37.0-47.0); HEMOGLOBIN 6.5 g/dL (12.0-16.0); LYMPH# 0.69 X1000 (1.2-3.4); LYMPH% 10.1 % (20.5-51.1); MCH 20.4 PG (27-31); MCHC 28.1 g/dL (33-37); MCV 72.4 FL (81-99); MONO# 0.88 X1000 (0.11-0.59); MONO% 12.8 % (1.7-9.3); MPV 9.3 FL (7.4-10.4); NEUT# 4.95 X1000 (1.4-6.5); NEUT% 72.3 % (42.2-75.2); PLT 333 X1000 (130-400); RBC 3.19 XMIL (4.2-5.4); RDW 19.8 % (11.5-14.5); WBC 6.85 X1000 (4.8-10.8)
[2019-08-22 06:17] LABS: INR 1.23; PROTIME 15.7 Seconds (11.0-16.0)
[2019-08-22] MEDS: HUMALOG SUBQ SCH ×4 (06:28→20:03)
[2019-08-22 06:35] LABS: ALB/GLOB RATIO 1.5; ALBUMIN 2.6 g/dL (3.5-5.0); DIRECT BILIRUBIN 0.1 mg/dL (0.00-0.20); TOTAL BILIRUBIN 0.37 mg/dL (0.20-1.00); TOTAL PROTEIN 4.3 g/dL (6.3-8.3)
[2019-08-22 06:40] LABS: AGAP 6; BUN 39 mg/dL (8-22); CALCIUM 8.5 mg/dL (8.8-10.2); CHLORIDE 95 mmol/L (98-107); COSMO 279; GLUCOSE 85 mg/dL (70-104); POTASSIUM 3.8 mmol/L (3.5-5.1); SODIUM 135 mmol/L (136-145); TCO2 34 mmol/L (25-35)
[2019-08-22] MEDS ORDERED: SODIUM CHLORIDE 0.9% 0 ML ONE ×2 (07:11→10:01)
[2019-08-22] MEDS ORDERED: DIPRIVAN 1% ONE (08:00)
[2019-08-22] MEDS ORDERED: LASIX IV ONE (08:28)
[2019-08-22] MEDS ORDERED: VENTOLIN HFA INH PRN (08:42)
--- NOTE | 2019-08-22 08:50 | ENDOSCOPY OPERATIVE NOTE ---
[facility] ENDOSCOPY OPERATIVE NOTE , EGD PROCEDURE REPORT EXAM DATE: 08/22/2019 PATIENT NAME: Shanita Oro MR#: [id number] BIRTHDATE: 1935 ATTENDING: Jose Martinez MD STATUS: inpatient RESEARCH ASSOCIATE POLICY: INDICATIONS: The patient is a 84 yr old female here for an EGD due to anemia and melena. She has bee n taking Mobic, Advil, and Xarelto. PROCEDURE PERFORMED: EGD w/ biopsy MEDICATIONS: Per Anesthesia ESTIMATED BLOOD LOSS: None CONSENT: The patient understands the risks and benefits of the procedure and understands that these r isks include, but are not limited to: sedation, allergic reaction, infection, perforation and/or bleeding. Alternative means of evaluation and treatment include, among others: physical exam, x-rays, and/or surgical intervention. The patient elects to proceed with this endoscopic procedure. DESCRIPTION OF PROCEDURE: During pre-op preparation period all mechanical and medical equipment was c hecked for proper function. Hand hygiene and appropriate measures for infection prevention was taken. After the risks, benefits and alternatives of the procedure were thoroughly explained, Informed consent was verified, confirmed and timeout was successfully executed by the treatment team. The patient was anesthetized with topical anesthesia and the [id number] ([id number]) endoscope was introduced through the mouth and advanced to the second portion of the duoden um. Retroflexion was performed in the stomach and revealed a hiatal hernia. The gastroscope was then slowly withdrawn and removed. The patient's toleration of the procedure was excellent. ESOPHAGUS: A 3 cm hiatal hernia was noted. The mucosa of the esophagus appeared normal. STOMACH: Two non-bleeding, cratered, and clean-based ulcers measuring 7mm in size were found in the g astric antrum. Biopsies were taken of gastric mucosa to rule out H pylori. DUODENUM: The duodenal mucosa showed no abnormalities. ADVERSE EVENTS: There were no complications. IMPRESSIONS: ESOPHAGUS: A 3 cm hiatal hernia was noted. The mucosa of the esophagus appeared normal. STOMACH: Two non-bleeding, cratered, and clean-based ulcers measuring 7mm in size were found in the g astric antrum. Biopsies were taken of gastric mucosa to rule out H pylori. DUODENUM: The duodenal mucosa showed no abnormalities. RECOMMENDATIONS: 1. Await biopsy results 2. Advance diet as tolerated 3. Recommend PPI PO BID for 3 months 4. Avoid NSAIDs and aspirin 5. Trend H/H daily, transfuse prn for goal hgb 7-8 6. Recommend iron replacement therapy with ferrous sulfate 325mg PO BID 7. Will sign off. Please call with questions. REPEAT EXAM: Return in 3 months for EGD. Jose Martinez MD eSigned: Jose Martinez MD 08/22/2019 8:49 AM CC: CPT CODES: 33779 Upper gastrointestinal endoscopy including esophagus, stomach, and either the du odenum and/or jejunum as appropriate; with biopsy, single or multiple ICD CODES: 553.3 Diaphragmatic hernia without mention of obstruction or gangrene 578.1 Blood in stool 285.9 anemia,unspecified The ICD and CPT codes recommended by this software are interpretations from the data that the [facility] staff has captured with the software. The verification of the translation of this report to the ICD and CPT co kennedy and modifiers is the sole responsibility of the health care institution and practicing physician where this report was generated. [employer] will not be held responsible for the validity of the ICD and CPT codes i ncluded on this report. [employer] assumes no liability for data contained or not contained herein. CPT is a registered tra demark of the [employer]. PATIENT NAME: Shanita Oro MR#: [id number]
--- NOTE | 2019-08-22 09:07 | PROGRESS NOTE ---
DATE: 08/22/2019 INTERVAL HISTORY: No acute events overnight. SUBJECTIVE: Ms. Preethi farias is feeling fine. Denies any chest pain. She appears slightly short of breath, although she subjectively denies it. She denies any nausea, vomiting or abdominal pain. She has not had any bowel movement since yesterday. She denies any known sick contacts with respiratory symptoms. She denies recent travel. She denies having had any exposure to someone with COVID-19. CURRENT VITALS: Temperature 98.4 degrees, pulse 61, respiratory 18, blood pressure 117/52. She is saturating 91% on 50% Venturi mask. PHYSICAL EXAMINATION: Oral cavity: Moist. Lungs: Air entry bilaterally equal. No wheeze or rhonchi. She has no wheezes. She has mild rhonchi bilateral. She also has inspiratory crackles in bilateral infrascapular region. Cardiovascular: S1, S2 normal. Regular. No murmur or gallop. Abdomen: Soft, nontender. Active bowel sounds. Extremities: She has mild lower extremity edema. Neurologic: She is alert and oriented x3. LABS: Suggestive of WBC 6.8, hemoglobin 6.5 after 2 units of blood transfusion. She is getting her third unit now. Platelet is 333. INR is 1.2. Electrolytes suggest BUN of 39, creatinine of 1. She likely has chronic kidney disease stage III. ProBNP was elevated. Influenza screen was negative. Blood cultures have been collected. IMAGING: Extremity venous studies did not have any DVT or SVT. Chest x-ray yesterday had small bilateral pleural effusions with atelectasis or infiltrate in the lung bases, more pronounced on the right. Electrocardiogram had AV dual paced rhythm. ASSESSMENT AND PLAN: 1. Acute blood loss anemia in the setting of use of Xarelto and nonsteroidal anti-inflammatory drugs. She is receiving her third unit of packed red blood cells. I will give her intravenous Lasix with it. I will continue her on iron carbonyl, as well as multivitamin. 2. Acute gastrointestinal bleed likely upper based on history of melena in the setting of above- mentioned medications. Continue intravenous proton pump inhibitors every 12 hours. Appreciate Gastroenterology team's recommendation. Looks like her esophagogastroduodenoscopy has been postponed considering pending code status. 3. Acute on chronic hypoxic respiratory failure due to severe anemia leading to decreased oxygen- carrying capacity, bilateral pleural effusions and suspected right lower lobe pneumonia. Continue oral levofloxacin and intravenous Lasix as needed. Continue oxygen to maintain saturation more than 92%. She also has a history of chronic obstructive pulmonary disease, though she is currently not wheezing. I will start her on inhaled bronchodilators as needed. She quit smoking a few weeks ago. 4. History of bradycardia status post pacemaker; history of [id number] diabetes mellitus are currently stable. I will keep checking her blood sugar. DISPOSITION: Continue to monitor when patient in PVC. Plan of care discussed with her. All of her questions have been satisfactorily answered. cc: Darshan Gee MD
[2019-08-22] MEDS: ICAR-C PLUS PO SCH (09:57)
[2019-08-22 12:09] LABS: HEMATOCRIT 29.3 % (37.0-47.0); HEMOGLOBIN 8.6 g/dL (12.0-16.0)
[2019-08-22] MEDS ORDERED: PROTONIX IV SCH (14:00)
[2019-08-22] MEDS ORDERED: LEVAQUIN PO SCH (18:00)
[2019-08-22] MEDS: PROTONIX [NONFORMULARY] PO SCH (20:01)
[2019-08-22] MEDS: ZOCOR PO SCH (20:01)
[2019-08-23 06:01] LABS: BASO# 0.15 X1000 (0.0-0.2); BASO% 1.5 % (0.0-0.8); EOS# 0.33 X1000 (0.0-0.7); EOS% 3.2 % (0.0-10.0); HEMATOCRIT 27.7 % (37.0-47.0); HEMOGLOBIN 8.1 g/dL (12.0-16.0); IMM GRAN# 0.04 X1000 (0.0-0.04); IMM GRAN% 0.4 % (0.0-0.5); LYMPH# 0.87 X1000 (1.2-3.4); LYMPH% 8.5 % (20.5-51.1); MCH 22.5 PG (27-31); MCHC 29.2 g/dL (33-37); MCV 76.9 FL (81-99); MONO# 1.21 X1000 (0.11-0.59); MONO% 11.9 % (1.7-9.3); MPV 9.5 FL (7.4-10.4); NEUT# 7.61 X1000 (1.4-6.5); NEUT% 74.5 % (42.2-75.2); PLT 286 X1000 (130-400); RDW 21.1 % (11.5-14.5); WBC 10.21 X1000 (4.8-10.8)
[2019-08-23 06:18] LABS: AGAP 8; BUN 26 mg/dL (8-22); CHLORIDE 96 mmol/L (98-107); COSMO 280; CREATININE 0.9 mg/dL (0.5-0.9); GLUCOSE 91 mg/dL (70-104); POTASSIUM 3.6 mmol/L (3.5-5.1); SODIUM 138 mmol/L (136-145); TCO2 34 mmol/L (25-35)
--- NOTE | 2019-08-23 07:55 | Diag Imaging Result Doc PS360 ---
EXAM: CHEST-PORTABLE 08/23/2019 HISTORY: dyspnea TECHNIQUE: AP portable at 0603 COMMENT: Compared to 08/21/2019 there has been marked volume loss on the left particularly at the left upper lobe. There is ill-defined opacity throughout much of the left lung and there may be loculated pleural fluid laterally over the left upper lobe. There is hazy pulmonary edema over the right base. The atelectasis in the right middle lobe which was present previously has apparently resolved however. IMPRESSION: Worsened atelectasis versus pneumonia on the left. Worsened pulmonary edema. Electronically signed by Get Holcomb 08/23/2019 7:52 AM
[2019-08-23] MEDS: ICAR-C PLUS PO SCH (09:16)
[2019-08-23] MEDS: PROTONIX [NONFORMULARY] PO SCH ×2 (09:17→20:22)
[2019-08-23] MEDS: HUMALOG SUBQ SCH ×4 (10:15→20:27)
[2019-08-23] MEDS ORDERED: LASIX IV ONE (13:01)
--- NOTE | 2019-08-23 14:13 | ECHO REPORT ---
ORDER DATE: 08/21/2019 MEASUREMENTS: Septal thickness 1.0, left ventricular internal diameter in diastole 5.5, aortic root, 3.5, left atrium 4.4. FINDINGS: 1. Technically difficult study due to limited acoustic window quality. 2. Aortic valve is not well imaged but appears to open adequately on 2-dimensional images. The peak gradient across the aortic valve is 25 mmHg with a mean gradient of 12 mmHg. The calculated aortic valve area by Doppler is 1.6 cm2. Mild aortic stenosis is suggested by Doppler. There is mild aortic regurgitation. Mild mitral annular calcification is demonstrated. There is mild mitral regurgitation. Tricuspid valve without evidence of structural abnormality while pulmonic valve is not well demonstrated. There is very mild tricuspid regurgitation. Estimated systolic PA pressure by Doppler is 50 to 55 mmHg, suggesting moderate pulmonary hypertension. The aortic root is normal in size. 3. Normal left ventricular dimensions demonstrated. Estimated left ejection fraction appears to be approximately 65%. No regional wall motion abnormality can be appreciated. Left atrium is mildly enlarged. The right atrium and right ventricle are normal in size with grossly preserved right ventricular systolic function. 4. No pericardial effusion. 5. Appearance of inferior vena cava suggests mildly elevated central venous pressure. CONCLUSIONS: 1. Technically difficult study. 2. Mild aortic stenosis and mild aortic regurgitation. 3. Mild mitral annular calcification with mild mitral regurgitation. 4. Mild tricuspid regurgitation with moderate pulmonary hypertension by Doppler. 5. Estimated left ejection fraction approximately 65%. 6. Mild left atrial enlargement. 7. Mild elevation in central venous pressure suggested. cc: MD Susan Moreno CRNP
[2019-08-23] MEDS: LEVAQUIN 500 MG/D5W 500 MG/100 ML IVPB IV SCH (14:24)
--- NOTE | 2019-08-23 16:13 | PROGRESS NOTE ---
DATE: 08/23/2019 INTERVAL HISTORY: Ms. Oro yesterday underwent EGD which had detected clean-based 2 small ulcers in the gastric antrum. There was no active bleeding. She was advised to remain on oral PPI twice a day for at least 3 months. Overnight, she did have oxygen desaturation and she was transitioned from Ventimask to nonrebreather mask. Her Covid-19 test came negative. SUBJECTIVE: Ms. Oro is denying any chest pain. She denies any shortness of breath at rest. However, she states that she was told that her oxygen was low. She is complaining of cough with expectoration which is [place] in color. A sample has been sent. REVIEW OF SYSTEMS: Negative for chest pain. Negative for nausea or vomiting. Negative for abdominal pain. Negative for any bowel movement. VITALS: Currently, temperature 98.3 degrees, pulse 65, respiratory rate 20, blood pressure 110/59, she is saturating 95 percent on what looks like 70% nonrebreather mask. PHYSICAL EXAMINATION: Oral cavity is moist. She has diminished air entry in the left lung raygoza. Otherwise, air entry appears adequate in the right lung raygoza. No wheeze or rhonchi. She had mild crackles in the left lung field. Cardiovascular: S1, S2 normal. Regular. No murmur, rub, or gallop. Abdomen: Soft, nontender. No lower extremity edema. She is alert and oriented x3. LABS: Suggestive of WBC of 10,000, hemoglobin 8.1, platelets 286,000. She has a BUN of 26, creatinine 0.6. Covid-19 test was positive. Blood culture does not have any growth. Sputum culture is pending. Chest x-ray suggests worsened atelectasis versus pneumonia on the left and worsened pulmonary edema. Echocardiogram had suggested mild aortic stenosis. Ejection fraction of 65%. ASSESSMENT AND PLAN: 1. Acute upper gastrointestinal bleed leading to acute blood loss anemia in the setting of a gastric ulcer along with the use of Xarelto and nonsteroidal anti-inflammatory drugs. She is status post 3 units of packed red blood cells, with appropriate rise in hemoglobin. Continue proton pump inhibitor twice a day, iron carbonyl, and multivitamin. She is status post esophagogastroduodenoscopy. 2. Acute on chronic hypoxic respiratory failure due to bilateral lower lobe pneumonia, atelectasis, and acute pulmonary edema. Her pulmonary edema could be related to blood transfusion. I will give her intravenous Lasix. I will intensify antibiotic regimen with addition of intravenous linezolid and change levofloxacin to intravenous. I will follow up with sputum culture. I will start her on bronchial hygiene with acetylcysteine, inhaled bronchodilators, guaifenesin. I started her on incentive spirometry and discussed with her about cough, deep breath exercise. Physical therapy has also been ordered to help her ambulate. 3. History of bradycardia, status post pacemaker, and jbe-uqoaqnh-yqkkscbrh diabetes mellitus are currently stable. DISPOSITION: I will continue to monitor the patient in the PVC unit. I called the patient's daughter who is listed as primary contact. I discussed with her about the patient's pneumonia, low oxygen, blood loss, stomach ulcers. I discussed with her about potentiating antibiotic regimen, giving her oxygen, and I answered all of her questions. The patient's questions have also been answered. cc: Darshan Gee MD
[2019-08-23] MEDS: MUCOMYST 20% INH SCH ×2 (16:49→20:29)
[2019-08-23] MEDS: ZYVOX 600 MG/D5W 600 MG/300 ML IVPB IV SCH (17:04)
[2019-08-23] MEDS: BIDEX PO SCH (20:22)
[2019-08-23] MEDS: ZOCOR PO SCH (20:22)
[2019-08-23] MEDS: DUONEB (A & A) INH SCH ×2 (20:29→23:00)
[2019-08-24] MEDS: DUONEB (A & A) INH SCH ×6 (03:35→23:11)
[2019-08-24] MEDS: ZYVOX 600 MG/D5W 600 MG/300 ML IVPB IV SCH ×2 (04:19→17:22)
[2019-08-24 06:02] LABS: BASO# 0.09 X1000 (0.0-0.2); EOS# 0.41 X1000 (0.0-0.7); EOS% 4.3 % (0.0-10.0); HEMATOCRIT 28.6 % (37.0-47.0); IMM GRAN# 0.02 X1000 (0.0-0.04); IMM GRAN% 0.2 % (0.0-0.5); LYMPH# 1.16 X1000 (1.2-3.4); LYMPH% 12.3 % (20.5-51.1); MCH 21.5 PG (27-31); MCV 76.9 FL (81-99); MONO# 1.09 X1000 (0.11-0.59); MONO% 11.5 % (1.7-9.3); MPV 9.3 FL (7.4-10.4); NEUT# 6.67 X1000 (1.4-6.5); NEUT% 70.7 % (42.2-75.2); PLT 323 X1000 (130-400); RBC 3.72 XMIL (4.2-5.4); RDW 21.6 % (11.5-14.5); WBC 9.44 X1000 (4.8-10.8)
[2019-08-24] MEDS: HUMALOG SUBQ SCH ×3 (06:24→15:42)
[2019-08-24 06:29] LABS: AGAP 6; BUN 19 mg/dL (8-22); CALCIUM 8.9 mg/dL (8.8-10.2); CHLORIDE 96 mmol/L (98-107); COSMO 283; CREATININE 0.8 mg/dL (0.5-0.9); GLUCOSE 120 mg/dL (70-104); POTASSIUM 3.7 mmol/L (3.5-5.1); SODIUM 140 mmol/L (136-145); TCO2 38 mmol/L (25-35)
[2019-08-24 06:35] LABS: EOS 3 % (1-10); LYMPHS 13 % (21-51); MONO 8 % (1-9); SEGS 76 % (42-75)
[2019-08-24] MEDS: MUCOMYST 20% INH SCH ×2 (08:23→20:02)
--- NOTE | 2019-08-24 09:14 | Diag Imaging Result Doc PS360 ---
EXAM: CHEST-2 VIEWS HISTORY: hypoxia TECHNIQUE: Two chests COMPARISON: 08/23/2019 FINDINGS: The lungs are well expanded. The heart is enlarged. Left sided pacemaker. Mild central vascular distention. There are no infiltrates. Small bilateral pleural effusions. IMPRESSION: Interval improvement. Electronically signed by Hua Mckeon 08/24/2019 9:11 AM
[2019-08-24] MEDS ORDERED: LASIX IV ONE (09:18)
[2019-08-24] MEDS: ICAR-C PLUS PO SCH (09:36)
[2019-08-24] MEDS: BIDEX PO SCH ×2 (09:36→20:51)
[2019-08-24] MEDS: PROTONIX [NONFORMULARY] PO SCH ×2 (09:36→20:51)
--- NOTE | 2019-08-24 10:49 | PROVIDER PROGRESS NOTE ---
Progress Note S: No acute overnight events. She is tolerating PO. No N/V/F, CP, or abdominal pain. No recurrent melena. +BMs. O: Last Vital Signs Temp 98 F 08/24/19 07:19 Pulse 65 08/24/19 08:26 Resp 20 08/24/19 08:26 BP 106/50 08/24/19 07:19 Pulse Ox 99 08/24/19 08:26 Height 5 ft 4 in Weight 174 lb 1 oz GEN: elderly, chronically ill appearing, NAD HEENT: anicteric, MMM NECK: supple, no LAD CV: normal rate, no murmurs PULM: CTAB anteriorly no wheezing ABD: soft NT/ND EXT: WWP, no c/c NEURO: nonfocal LABS: 08/24/19 08/24/19 05:45 05:45 WBC 9.44 Hgb 8.0 L MCV 76.9 L Plt Count 323 Sodium 140 Potassium 3.7 Chloride 96 L Carbon Dioxide 38 H BUN 19 Creatinine 0.8 Glucose 120 H EGD 08/22/2019 ESOPHAGUS: A 3 cm hiatal hernia was noted. The mucosa of the esophagus appeared normal. STOMACH: Two non-bleeding, cratered, and clean-based ulcers measuring 7mm in size were found in the gastric antrum. Biopsies were taken of gastric mucosa to rule out H pylori. DUODENUM: The duodenal mucosa showed no abnormalities. Gastric biopsies negative for H pylori PROBLEM LIST: - GI bleed - Gastric ulcers - Iron deficiency anemia - COPD - Pneumonia - AFIB - History of DVT - Vitamin B12 deficiency - NIDDM2 A/P Mr. Shanita Oro is a 84 year old woman with COPD, AFIB, h/o DVT on Xarelto who presented with UGIB from NSAID-induced gastric ulcers found on EGD. She is also being treated for hypoxic respiratory distress in setting of bilateral pneumonia. Her hgb has remained stable without further GI bleeding. She is on PPI BID. ASSESSMENT AND PLAN: Ms. Shanita Oro is an 84-year-old woman who presents with probable upper GI bleed concerning for PUD. She does take Xarelto, Mobic and Advil on a regular basis. Her hemoglobin as an outpatient was 4.1, currently is 5.3. She is receiving 2 units of packed red blood cells. We will check a hemoglobin post transfusion and transfuse as needed to maintain a hemoglobin of 7 and 8. Maintain 2 large-bore peripheral IVs. She is on PPI IV b.i.d. We will keep her n.p.o. for diagnostic EGD in the morning. She is on supplemental oxygen. We are holding her blood thinners and NSAIDs. Trend her hemoglobin and hematocrit daily. She does have some vitamin B12 deficiency, iron deficiency suggestive of probable acute on chronic blood loss. We will follow with you. Please call with any questions or concerns. 1. Await biopsy results 2. Advance diet as tolerated 3. Recommend PPI PO BID for 3 months 4. Avoid NSAIDs and aspirin 5. Trend H/H daily, transfuse prn for goal hgb 7-8 6. Recommend iron replacement therapy with ferrous sulfate 325mg PO BID 7. Will sign off. Please call with questions. REPEAT EXAM: Return in 3 months for EGD.
--- NOTE | 2019-08-24 12:09 | PROGRESS NOTE ---
DATE: 08/24/2019 INTERVAL HISTORY: No acute events overnight. She was able to cough up a lot of secretions and her chest x-ray suggests improvement. SUBJECTIVE: Ms. Oro Denies any chest pain. She denies any shortness of breath at rest. She is coughing and making sputum. Sputum culture has been collected. REVIEW OF SYSTEMS: Negative for nausea, vomiting. Negative for abdominal pain. VITALS: Temperature of 98 degrees, pulse 62, respiratory rate 20, blood pressure of 106/50. She is saturating 98% on 5 L nasal cannula. PHYSICAL EXAMINATION: General: Not in acute distress. HEENT: Oral cavity is moist. Lungs: Air entry bilaterally equal. No wheeze or rhonchi. She has crackles in infrascapular region and poor air entry. Heart: S1, S2 normal. No murmur or gallop. Abdomen: Soft, nontender. Extremities: She has a does not have any lower extremity edema. Neurologic: She is alert and oriented x3. Input and Output: Suggests positive 280 mL yesterday. LABS: Suggestive of hemoglobin of 8, platelet 323,000, WBC of 9.4, potassium of 3.7, glucose of 167. MICROBIOLOGY: Sputum culture has not shown any growth to date. IMAGING: Chest x-ray suggests there is interval improvement and mild central vascular congestion. ASSESSMENT AND PLAN: 1. Acute upper gastrointestinal bleed leading to acute blood loss anemia due to gastric ulcers in the setting of use of Xarelto and NSAID requiring 3 units of PRBC. Currently hemoglobin appears stable. Continue proton pump inhibitors twice a day, iron and multivitamin. I am holding Xarelto. She is status post EGD. 2. Acute on chronic hypoxic respiratory failure due to bilateral lower lobe pneumonia, atelectasis and acute pulmonary edema related to likely transfusion associated circulatory overload, though she did not have hypertension to definitively suggest that. I will give her intravenous Lasix. Continue intravenous linezolid and intravenous levofloxacin. She also had atelectesis involving left lung. Continue bronchial hygiene with inhaled bronchodilators, inhaled acetylcysteine and guaifenesin. I discussed with the nursing team about allowing her physical activity and incentive spirometer. 3. History of bradycardia status post pacemaker and oon-ormtyaq-kqrlsmvsj diabetes mellitus are stable. Her sepsis has resolved. DISPOSITION: Monitor patient in [facility]. Plan of care discussed with her, questions have been answered. cc: Darshan Gee MD MTDD
[2019-08-24] MEDS ORDERED: CALMOSEPTINE OINTMENT TOP PRN ×2 (14:14→21:48)
[2019-08-24] MEDS: LEVAQUIN 500 MG/D5W 500 MG/100 ML IVPB IV SCH (14:24)
[2019-08-24] MEDS: ZOCOR PO SCH (20:51)
[2019-08-25] MEDS: ZYVOX 600 MG/D5W 600 MG/300 ML IVPB IV SCH ×2 (03:24→17:23)
[2019-08-25] MEDS: HUMALOG SUBQ SCH ×5 (03:24→21:14)
[2019-08-25] MEDS: DUONEB (A & A) INH SCH ×6 (03:56→23:50)
[2019-08-25 06:05] LABS: BASO# 0.12 X1000 (0.0-0.2); BASO% 1.4 % (0.0-0.8); EOS# 0.55 X1000 (0.0-0.7); EOS% 6.3 % (0.0-10.0); HEMATOCRIT 27.5 % (37.0-47.0); HEMOGLOBIN 7.8 g/dL (12.0-16.0); IMM GRAN# 0.02 X1000 (0.0-0.04); IMM GRAN% 0.2 % (0.0-0.5); LYMPH# 1.02 X1000 (1.2-3.4); LYMPH% 11.7 % (20.5-51.1); MCH 21.7 PG (27-31); MCHC 28.4 g/dL (33-37); MCV 76.4 FL (81-99); MONO# 1.23 X1000 (0.11-0.59); MONO% 14.2 % (1.7-9.3); MPV 8.9 FL (7.4-10.4); NEUT# 5.75 X1000 (1.4-6.5); NEUT% 66.2 % (42.2-75.2); PLT 275 X1000 (130-400); RDW 22.8 % (11.5-14.5); WBC 8.69 X1000 (4.8-10.8)
[2019-08-25 06:14] LABS: AGAP 9; BUN 17 mg/dL (8-22); CALCIUM 8.6 mg/dL (8.8-10.2); CHLORIDE 93 mmol/L (98-107); COSMO 275; CREATININE 0.8 mg/dL (0.5-0.9); GLUCOSE 122 mg/dL (70-104); POTASSIUM 3.4 mmol/L (3.5-5.1); SODIUM 136 mmol/L (136-145); TCO2 34 mmol/L (25-35)
[2019-08-25] MEDS: LOVENOX SUBQ SCH (08:25)
[2019-08-25] MEDS: MUCOMYST 20% INH SCH ×2 (08:28→19:27)
[2019-08-25] MEDS: BIDEX PO SCH ×2 (08:40→21:14)
[2019-08-25] MEDS: ICAR-C PLUS PO SCH (08:40)
[2019-08-25] MEDS: KLOR-CON PO SCH ×2 (08:40→13:36)
[2019-08-25] MEDS: PROTONIX [NONFORMULARY] PO SCH ×2 (08:41→21:14)
--- NOTE | 2019-08-25 08:45 | Diag Imaging Result Doc PS360 ---
EXAM: CHEST-2 VIEWS 08/25/2019 HISTORY: Follow up Atelectasis TECHNIQUE: PA and lateral chest COMMENT: Compared to 08/24/2019 the pleural fluid collection on the left appears slightly smaller and there is slightly less opacity in the left lower lobe. There is still some platelike opacity in the right lower lobe. IMPRESSION: Improved left pleural effusion and bilateral lower lobe atelectasis. Electronically signed by Get Holcomb 08/25/2019 8:42 AM
[2019-08-25] MEDS ORDERED: LASIX IV ONE (09:26)
--- NOTE | 2019-08-25 11:21 | PROGRESS NOTE ---
DATE: 08/25/2019 INTERVAL HISTORY: Ms. Oro was put back on nonrebreather mask overnight because her oxygen saturation dropped. She states that she had a bowel movement. Her stool occult blood test was positive, which was expected. SUBJECTIVE: She denies chest pain, shortness of breath. She has been coughing and making sputum, though the sputum culture did not grow any bacteria. VITAL SIGNS: Temperature 98.3 degrees, pulse 64, respiratory 18, blood pressure 115/57, saturating 99% on nonrebreather mask. PHYSICAL EXAMINATION: General: Not in acute distress. HEENT: Oral cavity is moist. Lungs: She has decreased air entry with inspiratory crackles in the bilateral infrascapular region. Cardiovascular: S1, S2 normal, no murmur, rub or gallop. Abdomen: Soft, nontender. Extremity: No lower extremity edema. Neurologic: She is alert and oriented x3. INPUT AND OUTPUT: Suggests positive 740 mL but I do not think it is charted appropriately. LABORATORY DATA: Hemoglobin of 7.8, platelet 275,000. Her potassium is 3.4, and hypokalemia is currently being repleted. MICROBIOLOGY: No positive microbiological data. IMAGING: Chest x-ray suggests improved left pleural effusion and bilateral lower lobe atelectasis. ASSESSMENT: 1. Acute upper gastrointestinal bleed due to gastric ulcers in the setting of Xarelto and nonsteroidal anti-inflammatory drugs use. 2. Acute blood loss anemia status post 3 packed red blood cell transfusion. 3. Acute on chronic hypoxic respiratory failure due to bilateral lower lobe pneumonia, bilateral pleural effusion, atelectasis. 4. History of bradycardia status post pacemaker. 5. Nfl-ksijtyy-tpigliatx diabetes mellitus. PLAN: 1. I will continue her on iron multivitamin tablets. I will continue to avoid NSAIDs and Xarelto. We will keep her on PPI b.i.d. for at least 3 months. 2. I will start her on incentive spirometry. Continue bronchial hygiene with incentive spirometry, bronchodilators, and acetylcysteine. I will continue her on intravenous antibiotics. DISPOSITION: If the patient's oxygen saturation are stable on nasal cannula, I will consider discharging her later tonight or tomorrow. She is in agreement with the plan. I called the patient's daughter, Ms Falcon. I discussed with her about patient's clinical condition including anemia, stomach ulcer, holding Xarelto and NSAID, keeping her on PPI. I also discussed with her that the patient should get in touch with her lay ups assembler regarding the fact that she has been off Xarelto and all of her questions were satisfactorily answered. She is in agreement with the plan. cc: Darshan Gee MD
[2019-08-25] MEDS: LEVAQUIN 500 MG/D5W 500 MG/100 ML IVPB IV SCH (13:35)
[2019-08-25] MEDS: ZOCOR PO SCH (21:14)
[2019-08-26] MEDS: DUONEB (A & A) INH SCH ×2 (03:58→07:47)
[2019-08-26] MEDS: ZYVOX 600 MG/D5W 600 MG/300 ML IVPB IV SCH (04:40)
[2019-08-26] MEDS: HUMALOG SUBQ SCH (06:15)
[2019-08-26 07:31] LABS: BASO# 0.09 X1000 (0.0-0.2); BASO% 1.3 % (0.0-0.8); EOS# 0.53 X1000 (0.0-0.7); EOS% 7.6 % (0.0-10.0); HEMATOCRIT 29.2 % (37.0-47.0); LYMPH# 0.83 X1000 (1.2-3.4); LYMPH% 11.9 % (20.5-51.1); MCH 21.1 PG (27-31); MCHC 27.4 g/dL (33-37); MCV 76.8 FL (81-99); MONO# 0.83 X1000 (0.11-0.59); MONO% 11.9 % (1.7-9.3); NEUT# 4.69 X1000 (1.4-6.5); NEUT% 67.3 % (42.2-75.2); PLT 286 X1000 (130-400); RDW 23.4 % (11.5-14.5); WBC 6.97 X1000 (4.8-10.8)
[2019-08-26 07:40] VITALS: BP 120/81
[2019-08-26 07:45] LABS: AGAP 8; BUN 13 mg/dL (8-22); CALCIUM 8.9 mg/dL (8.8-10.2); CHLORIDE 95 mmol/L (98-107); COSMO 270; CREATININE 0.6 mg/dL (0.5-0.9); GLUCOSE 99 mg/dL (70-104); POTASSIUM 4.1 mmol/L (3.5-5.1); SODIUM 135 mmol/L (136-145); TCO2 32 mmol/L (25-35)
[2019-08-26] MEDS: PROTONIX [NONFORMULARY] PO SCH (09:33)
[2019-08-26] MEDS: BIDEX PO SCH (09:33)
[2019-08-26] MEDS: ICAR-C PLUS PO SCH (09:33)
[2019-08-26] MEDS: LOVENOX SUBQ SCH (09:34)
--- NOTE | 2019-08-26 12:16 | DISCHARGE SUMMARY ---
ADMISSION DATE: 08/21/2019 DISCHARGE DATE: 08/26/2019 DISCHARGE DISPOSITION: Home. She is already on home oxygen. DISCHARGE CONDITION: Hemodynamically stable. Her blood count has remained stable. She is not having active bleeding. Her Xarelto was discontinued. She was advised to perform cough, deep breathing exercises, and have a follow up with ship mate and regular physician. Discussed about her admission, including the fact that she has not been on Xarelto. I had a detailed discussion about her medical conditions including acute blood loss anemia, gastric ulcers, atelectasis, hypoxia with her daughter on 08/25/2019. She was allowed to ask questions. All of her questions were answered. DISCHARGE DIAGNOSES: 1. Acute upper gastrointestinal bleed due to gastric ulcers. 2. Acute blood loss anemia requiring 3 packed red blood cells transfusion. 3. Acute gastrointestinal bleed in the setting of use of Xarelto and nonsteroidal anti- inflammatory drugs. 4. Acute on chronic hypoxic respiratory failure due to bilateral lower lobe pneumonia, bilateral pleural effusion, atelectasis. 5. Acute heart failure with preserved ejection fraction 5. Hypokalemia. 6. Bilateral lower extremity edema due to congestive heart failure with preserved ejection fraction, exacerbation. OTHER DIAGNOSES: 1. History of tobacco abuse which she quit about 3 months ago. 2. History of atrial fibrillation and deep venous thrombosis on Xarelto. 3. History of bradycardia status post pacemaker. 4. History of essential hypertension. DISCHARGE MEDICATIONS: 1. Trazodone 50 mg at nighttime. 2. Melatonin 1 mg at nighttime. 3. Simvastatin 40 mg at nighttime. 4. Carvedilol 12.5 mg b.i.d. 5. Furosemide 40 mg b.i.d. which was increased from once a day. 6. Metformin 500 mg b.i.d. 7. Guaifenesin 400 mg b.i.d. 8. Icar C tablet 1 tablet daily. 9. Pantoprazole 40 mg b.i.d., 180 tablets have been prescribed. VITAL SIGNS: At the time of discharge, temperature 98.3 degrees, pulse 61, respiratory rate 22, blood pressure 120/80, saturating 96% on 3 L nasal cannula. PHYSICAL EXAMINATION: General: Ms. Oro was not in any acute distress. HEENT: Oral cavity is moist. Lungs: Air entry bilaterally equal. No wheeze or rhonchi. Mild crackles infrascapular region. Cardiovascular: S1, S2 normal. No murmur or gallop. Regular rate and rhythm. Abdomen: Soft, nontender. No jugular venous distention. Extremities: No lower extremity edema. Neurologic: She was alert and oriented x3. She does have hearing impairment. LABORATORY DATA: Labs at the time of discharge: On presentation, her hemoglobin was 4.3, which was 8 at the time of discharge. Her platelets 286,000, WBC 6.9. Her BUN on presentation was 45, which improved to 13 at the time of discharge. Her creatinine improved from 1.2 to 0.6 at the time of discharge. Lactate on presentation was 0.9. Microbiology: Influenza screen, blood culture and sputum culture did not have any growth. IMAGIN. Chest x-ray on 08/21/2019 had bilateral pleural effusion with atelectasis or infiltrate at both of the lungs, predominantly right-sided. 2. Extremity venous study did not have any DVT or SVT in any of the lower extremities. 3. Echocardiogram had ejection fraction of 65%, mild left atrial enlargement and mild elevation of central venous pressure, though it was a technically difficult study. 4. Chest x-ray on 08/25/2019 had improved right pleural effusion and bilateral lower lobe atelectasis. 5. Gastric biopsy results had focally active gastritis with hyperplasia. 6. Electrocardiogram on 08/21/2019 had AV dual paced rhythm. PROCEDURES DURING HOSPITAL ADMISSION: Endoscopy on 08/22/2019 had a 3 cm hiatal hernia, two nonbleeding crater and clean based ulcers measuring 7 mm in size without any active bleeding. CONSULTATION DURING HOSPITAL ADMISSION: Gastroenterology, Dr. Martinez. HOSPITAL COURSE SUMMARY: Ms. Oro is an 84-year-old lady with past medical history of tobacco abuse, which she quit about 3 to 6 months ago, bradycardia status post pacemaker, chronic hypoxic respiratory failure on home oxygen about 2 to 3 L/minute, paroxysmal atrial fibrillation on Xarelto, essential hypertension, who was seeing her outpatient provider, who had performed routine lab tests where she was found to have hemoglobin of 4. Ms. Oro was directly admitted for workup of anemia. Apparently, the patient has also been complaining of melena. She was started on intravenous Protonix b.i.d. and was given 3 units of blood transfusion, and Gastroenterology had performed EGD where she was found to have clean based ulcers in the gastric mucosa which were nonbleeding. It was thought that her ulcers were in the setting of her prior history of smoking, use of NSAID for pain as well as Xarelto. After 3 units of blood transfusion, her hemoglobin and hematocrit improved from 4.8 on presentation to 8 at the time of discharge. She will be discharged on oral proton pump inhibitors twice a day, iron and multivitamin tablets. Her Xarelto and NSAIDs were held, and she was advised to have a follow up with her regular physician and discussed about repeating blood count as necessary. While inside the hospital, the patient had also developed shortness of breath and was hypoxic. Her hypoxia was related to bilateral presumed pneumonia, pleural effusion, atelectasis anemia on presentation. It was also thought that she was experiencing acute congestive heart failure with preserved ejection fraction. She was started on IV diuresis, inhaled bronchodilators, cough, deep breathe exercise and incentive spirometer. Following which her condition improved and at the time of discharge, she was saturating 98% on 3 L nasal cannula. Her Lasix dose was increased and she was advised to have follow up with her regular physician. 25 minutes were spent discharging the patient. Plan of care were discussed with her. Her questions have been answered. cc: Darshan Gee MD MTDD
== END 2019-08-26 11:18 | disposition home or self-care (01) | DRG 377 ==
LOC: SUATTDRO 11:43 → DIRADM 11:43 → 2N 12:36
PROVIDERS: ATTEND Internal Medicine